=== PATIENT | female | born 1960 | race Caucasian/White ===

== ENCOUNTER → 2017-08-13 14:24 | Outpatient (CLI) | payer OTHER, SELFPAY ==
--- NOTE | 2017-08-13 14:28 | RAD_ITS ---
STUDY: X-RAY - LEFT KNEE REASON FOR EXAM: Female, 56 years old. Left knee pain TECHNIQUE: 4 view(s) of the knee. COMPARISON: None. FINDINGS: Normal visualized distal femur. Normal visualized proximal tibia and fibula. Normal proximal tibiofibular articulation. There is mild degenerative arthrosis of the medial femorotibial compartment. There is mild degenerative arthrosis of the lateral femorotibial compartment. There is mild degenerative arthrosis of the patellofemoral articulation. There is a soft tissue prominence in the suprapatellar region suggesting a small volume joint effusion. The soft tissue structures are unremarkable. RAD/Knee 4 or More Views IMPRESSION: Mild degenerative change Electronically Signed: Deandre Rivera DO at 15:46 EDT Tel , Service support ,
--- NOTE | 2017-08-13 14:28 | RAD_ITS ---
STUDY: X-RAY - LEFT CALCANEUS REASON FOR EXAM: Female, 56 years old. Left calcaneus pain TECHNIQUE: 2 view(s) of the calcaneus were obtained. COMPARISON: None. FINDINGS: Normal visualized calcaneus. There is a plantar calcaneal spur. There is enthesophyte formation of the posterior superior calcaneus at the site of insertion of the Achilles tendon. RAD/Calcaneus min 2 Views IMPRESSION: No acute findings, remainder as above Electronically Signed: Deandre Rivera DO at 15:47 EDT Tel , Service support ,
--- NOTE | 2017-08-13 14:28 | RAD_ITS ---
STUDY: X-RAY - RIGHT KNEE REASON FOR EXAM: Female, 56 years old. Bilateral knee pain TECHNIQUE: 4 view(s) of the knee. COMPARISON: None. FINDINGS: Normal visualized distal femur. Normal visualized proximal tibia and fibula. Normal proximal tibiofibular articulation. There appears to be a transverse avulsion along the medial tibial spur of indeterminate age. Normal medial femorotibial compartment. Normal lateral femorotibial compartment. Normal patellofemoral articulation. There is no demonstrated joint effusion. Extensive varicosities along the lateral subcutaneous tissue. RAD/Knee 4 or More Views IMPRESSION: Avulsion of the medial tibial spur of indeterminate age. There is no acute displaced fracture or dislocation. No effusions. Extensive varices. Electronically Signed: Mami Crockett MD at 3:54 EDT , Service support ,
--- NOTE | 2017-08-13 14:28 | RAD_ITS ---
STUDY: X-RAY - RIGHT CALCANEUS REASON FOR EXAM: Female, 56 years old. Heel pain TECHNIQUE: 2 view(s) of the calcaneus were obtained. COMPARISON: None. FINDINGS: Normal visualized calcaneus. There is enthesophyte formation of the posterior superior calcaneus at the site of insertion of the Achilles tendon. There is a plantar calcaneal spur. RAD/Calcaneus min 2 Views IMPRESSION: No acute findings, remainder as above Electronically Signed: Deandre Rivera DO at 15:46 EDT Tel , Service support ,
== END ==
PROVIDERS: Family Provider Internal Medicine; PCP Internal Medicine; Visit Provider Internal Medicine
DX: M25.562 Pain in left knee (principal); M25.561 Pain in right knee; M79.672 Pain in left foot; M79.671 Pain in right foot; G89.29 Other chronic pain
CPT/HCPCS: 73564; 73650

== ENCOUNTER 2017-08-31 18:00 | Outpatient (RCR) | payer OTHER, SELFPAY ==
--- NOTE | 2017-08-31 18:00 | DT_ITS ---
This patient was seen during an EMR downtime August 31, 2017 - September 07, 2017. This patient may have a combination of paper and electronic documentation or all paper documentation. All documentation is viewable within the e-chart portion of [facility] for each patient visit.
--- NOTE | 2017-09-08 09:51 | HP.PTEVAL_ITS ---
Patient's Visit Information IRIS COLINDRES is a 56 year old F referred to Physical Therapy by Malka Darnell with a diagnosis of LEG WEAKNESS,KNEE PAIN. Date of Evaluation: 09/08/17 Physical Therapist: Mati Noel PT, - Visit Plan Frequency: 2x /Week Duration: 4 Weeks Plan: PRE 'S QUAD/HAMS/HIP ,FUNCTIONAL STRENGTHENING,BIKE ,NUSTEP - Subjective Subjective: This 56 y/o female presents to physical therapy with leg weaknesss and knee pain . Patient major c/o is weakness and stiffness in bilateral knees left greater than right. Patient reports min pain in kness . Patient major limitation is with stair climbing,getting up from floor,and sit-stand from chair.Patient feels stiffness in knee with flexing knee. Symptoms worse in morning. Difficulty with deep squatting or kneeeling in knee. Patient denies low back pain. Bowel/bladder -OR night pain. Denies parathesia/tingling.Patient had x-rays showed mild OA and bone spurs. SOCIAL: - Objective POSTURE : WFL. PALPATION: no TTP. NEURO: inact ,denies parathesai/tingling. FLEXABLITY: hams WNL ,quads,mod tight. GAIT: normal priscila reciprocal pattern. AROM: 0-125 degrees supine knee flexion. MMT: quads/hams 4/5,hip abd 3/5 left,right 4-/5,bilateral hip extension 4-/5,hip flexion 4-/5. STAIRS: one step at a time with rail - Special Tests R Knee Dayna - Meniscus: Negative R Knee Valgus - MCL: Negative R Knee Varus - LCL: Negative R Knee Patellar Apprehension - PFS: Negative R Knee Patellar Grind - PFS: Negative L Knee Dayna - Meniscus: Negative L Knee Valgus - MCL: Negative L Knee Varus - LCL: Negative L Knee Patellar Apprehension - PFS: Negative - Goals Goal 1:: Independant with HEP Goal Time Frame: 4-6 Weeks Goal 2:: Patient to improve strength of bilateral hips to 4/5 to improve function. Goal Time Frame: 4-6 Weeks Goal 3:: Patient be able to perform 1/2 kneeling and squat lift with proper lifting Goal Time Frame: 4-6 Weeks Goal 4:: Patient asecend/descend stairs reciprocal without rail Goal Time Frame: 4-6 Weeks - Rehabilitation Potential Physical Therapy Diagnosis: This patient has weakness in bilateral knee mainly hip weakness and with mod tightness with quads which impairs stairs ,elevation from chair with functional transfers ,sqautting thus benifit from skilled PT. COMPLEXITY : MOD Rehabilitation Potential: Good - Anticipated Interventions Patient/Client Instruction: Educate patient on: Condition, Plan of Care For the Purpose of:: To increase ROM, To improve muscle performance and motor function, To improve ability to perform ADL's, To increase tolerance to activity /condition/position, To improve performance and independence with ADL's, To improve ability of physical actions for home/community/work/leisure, To improve gait and locomotor functions, To improve health of tissue, To decrease soft tissue restriction, To increase flexibility/ROM, To improve ability to perform tasks related to life management Therapeutic Exercise to Include: Strength training, Postural training, Flexibilty training, Active ROM Comment: KNEE/HIP For the Purpose of:: To increase ROM, To improve muscle performance and motor function, To improve ability to perform ADL's, To increase tolerance to activity /condition/position, To improve performance and independence with ADL's, To improve ability of physical actions for home/community/work/leisure, To improve gait and locomotor functions, To decrease soft tissue restriction, To increase flexibility/ROM, To improve ability to perform tasks related to life management TENS: Yes IF ES: Yes Ultrasound (thermal/non thermal): Yes For the Purpose of:: To decrease swelling/inflammation, To improve nutrient delivery to tissue, To increase oxygenation perfusion Thank you for the opportunity to evaluate your patient. For Medicare and Medicare HMO plans, please review the plan of care and approve it. It will need to be FAXED BACK to us at [phone] for Medicare purposes. Please let me know if there are questions or concerns regarding this plan of care. Physician Signature: Date:
--- NOTE | 2017-09-08 10:02 | HP.PTEVAL ---
Patient's Visit Information IRIS COLINDRES is a 56 year old F referred to Physical Therapy by Malka Darnell with a diagnosis of LEG WEAKNESS,KNEE PAIN. Date of Evaluation: 08/31/17 Physical Therapist: Mati Noel PT, - Visit Plan Frequency: 2x /Week Duration: 4 Weeks Plan: PRE 'S QUAD/HAMS/HIP ,FUNCTIONAL STRENGTHENING,BIKE ,NUSTEP - Subjective Subjective: This 56 y/o female presents to physical therapy with leg weaknesss and knee pain . Patient major c/o is weakness and stiffness in bilateral knees left greater than right. Patient reports min pain in kness . Patient major limitation is with stair climbing,getting up from floor,and sit-stand from chair.Patient feels stiffness in knee with flexing knee. Symptoms worse in morning. Difficulty with deep squatting or kneeeling in knee. Patient denies low back pain. Bowel/bladder -OR night pain. Denies parathesia/tingling.Patient had x-rays showed mild OA and bone spurs. SOCIAL: - Objective POSTURE : WFL. PALPATION: no TTP. NEURO: inact ,denies parathesai/tingling. FLEXABLITY: hams WNL ,quads,mod tight. GAIT: normal priscila reciprocal pattern. AROM: 0-125 degrees supine knee flexion. MMT: quads/hams 4/5,hip abd 3/5 left,right 4-/5,bilateral hip extension 4-/5,hip flexion 4-/5. STAIRS: one step at a time with rail - Special Tests R Knee Dayna - Meniscus: Negative R Knee Valgus - MCL: Negative R Knee Varus - LCL: Negative R Knee Patellar Apprehension - PFS: Negative R Knee Patellar Grind - PFS: Negative L Knee Dayna - Meniscus: Negative L Knee Valgus - MCL: Negative L Knee Varus - LCL: Negative L Knee Patellar Apprehension - PFS: Negative - Goals Goal 1:: Independant with HEP Goal Time Frame: 4-6 Weeks Goal 2:: Patient to improve strength of bilateral hips to 4/5 to improve function. Goal Time Frame: 4-6 Weeks Goal 3:: Patient be able to perform 1/2 kneeling and squat lift with proper lifting Goal Time Frame: 4-6 Weeks Goal 4:: Patient asecend/descend stairs reciprocal without rail Goal Time Frame: 4-6 Weeks - Rehabilitation Potential Physical Therapy Diagnosis: This patient has weakness in bilateral knee mainly hip weakness and with mod tightness with quads which impairs stairs ,elevation from chair with functional transfers ,sqautting thus benifit from skilled PT. COMPLEXITY : MOD Rehabilitation Potential: Good - Anticipated Interventions Patient/Client Instruction: Educate patient on: Condition, Plan of Care For the Purpose of:: To increase ROM, To improve muscle performance and motor function, To improve ability to perform ADL's, To increase tolerance to activity/condition/position, To improve performance and independence with ADL's, To improve ability of physical actions for home/community/work/leisure, To improve gait and locomotor functions, To improve health of tissue, To decrease soft tissue restriction, To increase flexibility/ROM, To improve ability to perform tasks related to life management Therapeutic Exercise to Include: Strength training, Postural training, Flexibilty training, Active ROM Comment: KNEE/HIP For the Purpose of:: To increase ROM, To improve muscle performance and motor function, To improve ability to perform ADL's, To increase tolerance to activity/condition/position, To improve performance and independence with ADL's, To improve ability of physical actions for home/community/work/leisure, To improve gait and locomotor functions, To decrease soft tissue restriction, To increase flexibility/ROM, To improve ability to perform tasks related to life management TENS: Yes IF ES: Yes Ultrasound (thermal/non thermal): Yes For the Purpose of:: To decrease swelling/inflammation, To improve nutrient delivery to tissue, To increase oxygenation perfusion Thank you for the opportunity to evaluate your patient. For Medicare and Medicare HMO plans, please review the plan of care and approve it. It will need to be FAXED BACK to us at [phone] for Medicare purposes. Please let me know if there are questions or concerns regarding this plan of care. Physician Signature: Date:
--- NOTE | 2017-11-06 15:55 | HP.PTDCNRP_ITS ---
HP - Discharge Summary (1) - Patient Information IRIS COLINDRES was seen in my office for initial evaluation on 08/31/17. The following Plan of Care was established for this patient: Initial Frequency: 2x /Week Initial Duration: 4 Weeks - Anticipated Interventions Patient/Client Instruction: Educate patient on: Condition, Plan of Care For the Purpose of:: To increase ROM, To improve muscle performance and motor function, To improve ability to perform ADL's, To increase tolerance to activity /condition/position, To improve performance and independence with ADL's, To improve ability of physical actions for home/community/work/leisure, To improve gait and locomotor functions, To improve health of tissue, To decrease soft tissue restriction, To increase flexibility/ROM, To improve ability to perform tasks related to life management Therapeutic Exercise to Include: Strength training, Postural training, Flexibilty training, Active ROM For the Purpose of:: To increase ROM, To improve muscle performance and motor function, To improve ability to perform ADL's, To increase tolerance to activity /condition/position, To improve performance and independence with ADL's, To improve ability of physical actions for home/community/work/leisure, To improve gait and locomotor functions, To decrease soft tissue restriction, To increase flexibility/ROM, To improve ability to perform tasks related to life management TENS: Yes IF ES: Yes Ultrasound (thermal/non thermal): Yes For the Purpose of:: To decrease swelling/inflammation, To improve nutrient delivery to tissue, To increase oxygenation perfusion This patient was last seen in our office . Pertinent comments regarding their Physical therapy will appear below: Patient seen for PT evaluation and HEP. At this point I will be discontinuing this patient from physical therapy. I would be happy to see this patient again in the future if found appropriate by the physician. Thank you! Mati Noel, PT,
== END 2017-08-31 19:00 | disposition home or self-care (01) ==
LOC: PT 18:00
PROVIDERS: Family Provider Internal Medicine; PCP Internal Medicine; Visit Provider Internal Medicine
DX: R29.898 Other symptoms and signs involving the musculoskeletal system (principal); M25.569 Pain in unspecified knee
CPT/HCPCS: 97110; 97162

== ENCOUNTER → 2020-10-08 07:18 | Outpatient (CLI) | payer OTHER, SELFPAY ==
--- NOTE | 2020-10-08 08:54 | NEURO_ITS ---
NCS and/or EMG Patient Report Ordering Doctor: Malka Darnell DATE OF SERVICE: 10/08/20 Indication: Numbness of the first three digits on the left hand. 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 Symptoms have been present intermittently for several years, but worsened significantly in March 2020. Evaluate for entrapment neuropathy. Findings: Nerve conduction studies were performed in the left upper extremity. The left median motor study recording the abductor pollicis brevis showed a normal amplitude, prolonged distal latency and borderline conduction velocity. The left ulnar motor study recording the abductor digiti minimi showed a normal amplitude, normal distal latency and normal conduction velocity. No conduction block or focal slowing was present across the elbow. The left median sensory response recording digit two showed a normal amplitude, prolonged latency and slowed conduction velocity. The left ulnar sensory response recording digit five showed a normal amplitude, latency and conduction velocity. The left radial sensory response recording over the extensor snuff box showed a normal amplitude, latency and conduction velocity. Left median-ulnar lumbrical / interosseous motor latencies showed a prolonged median latency compared to the ulnar. Needle EMG of the left upper extremity muscles was performed. No denervation was seen in any muscle. The left abductor pollicis brevis muscle revealed motor units with increased duration, increased amplitude and mildly reduced recruitment. All other motor unit morphology, activation and recruitment patterns were normal. The cervical paraspinal muscles were not sampled due to the paucity of findings in the limb muscles. Impression: This is an abnormal study. 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 The pathophysiology is primarily local demyelination, though there is a degree of secondary axonal loss. These findings are compatible with the clinical diagnosis of carpal tunnel syndrome. Brown Hernandez D.O.
== END ==
PROVIDERS: PCP Internal Medicine; Referring Provider Internal Medicine; Visit Provider Internal Medicine
DX: G56.02 Carpal tunnel syndrome, left upper limb (principal); M79.671 Pain in right foot; M25.571 Pain in right ankle and joints of right foot; E03.9 Hypothyroidism, unspecified
CPT/HCPCS: 95886; 95910

== ENCOUNTER 2021-07-12 09:31 | Outpatient (CLI) | payer OTHER, SELFPAY ==
--- NOTE | 2021-07-12 09:34 | BI_ITS ---
MAMMOGRAPHY - BILATERAL SCREENING REASON FOR EXAM: Female, 60 years old. Routine annual screening examination. PERTINENT HISTORY: Mother with breast cancer. TECHNIQUE: Digital bilateral breast conchita (3D mammographic acquisition) in the CC and MLO projections. 2-D mediolateral oblique (MLO) and craniocaudad (CC) views of both breasts were obtained. CAD: Full Field Digital Mammography with Computer Added Detection was performed. COMPARISON: Comparison is made with prior chest examination dated 04/13/2020. FINDINGS: Breast Composition: There are scattered areas of fibroglandular density. There are no dominant masses or suspicious calcifications. Stable small benign-appearing bilateral axillary lymph nodes. No other significant abnormalities are identified. There has been no significant change since the prior study. BI/SCRN MAMM (CAD)W/CONCHITA BILAT IMPRESSION: Stable bilateral screening mammogram. Yearly follow-up mammogram recommended. (A) ASSESSMENT CATEGORY: BIRADS Category 2: Benign. A letter regarding these results will be sent to the patient by the facility within 30 days. Approximately 10% of breast cancers are not detected by mammography. A normal mammogram should not delay biopsy of a clinically suspicious abnormality. [id number] Electronically Signed: Dilan Randall MD at 10:41 EDT ,
== END 2021-07-12 23:59 | disposition home or self-care (01) ==
LOC: OPBI 09:33
PROVIDERS: PCP Internal Medicine; Referring Provider Internal Medicine; Visit Provider Internal Medicine
DX: Z12.31 Encounter for screening mammogram for malignant neoplasm of breast (principal); Z80.3 Family history of malignant neoplasm of breast
CPT/HCPCS: 77063; 77067

== ENCOUNTER → 2022-07-18 | Outpatient (CLI) | payer OTHER, SELFPAY ==
--- NOTE | 2022-07-18 12:46 | BI_ITS ---
MAMMOGRAPHY - BILATERAL SCREENING REASON FOR EXAM: Female, 61 years old. Routine annual screening examination. PERTINENT HISTORY: Mother with breast cancer. TECHNIQUE: Digital bilateral breast conchita (3D mammographic acquisition) in the CC and MLO projections. 2-D mediolateral oblique (MLO) and craniocaudad (CC) views of both breasts were obtained. CAD: Full Field Digital Mammography with Computer Added Detection was performed. COMPARISON: Comparison is made with prior study dated July 12, 2021 and January 23, 2012. FINDINGS: Breast Composition: There are scattered areas of fibroglandular density. There are no dominant masses or suspicious calcifications. Stable asymmetric breast tissue in the upper outer quadrant of the left breast as compared to the right side. Correlation with ultrasound is recommended for further evaluation. No other significant abnormalities are identified. There has been no significant change since the prior study. BI/SCRN MAMM (CAD)W/CONCHITA BILAT IMPRESSION: Stable bilateral screening mammogram. Correlation with ultrasound of the upper-outer quadrant of the left breast is recommended. ASSESSMENT CATEGORY: BIRADS Category 0: Incomplete. Need additional imaging evaluation. A letter regarding these results will be sent to the patient by the facility within 30 days. Approximately 10% of breast cancers are not detected by mammography. A normal mammogram should not delay biopsy of a clinically suspicious abnormality. [id number] Electronically Signed: Dilan Randall MD at 13:54 EDT ,
== END | disposition home or self-care (01) ==
LOC: OPBI 12:45
PROVIDERS: PCP Internal Medicine; Referring Provider Internal Medicine; Visit Provider Internal Medicine
DX: Z12.31 Encounter for screening mammogram for malignant neoplasm of breast (principal); Z80.3 Family history of malignant neoplasm of breast
CPT/HCPCS: 77063; 77067

== ENCOUNTER → 2022-07-23 | Outpatient (CLI) | payer OTHER, SELFPAY ==
--- NOTE | 2022-07-23 10:50 | US_ITS ---
STUDY: ULTRASOUND BREAST - LEFT REASON FOR EXAM: Female, 61 years old. Abnormal screening mammogram. TECHNIQUE: Axial and longitudinal images of the LEFT breast were performed with a high resolution ultrasound transducer. # OF IMAGES: 31 COMPARISON: Comparison is made with prior mammogram dated July 18, 2022. FINDINGS: LEFT Breast: The upper outer quadrant of the left breast was examined with ultrasound. There is evidence of fibroglandular tissue. No sonographic abnormality is seen. US/Breast Limited Unilateral IMPRESSION: No sonographic abnormality is seen. ASSESSMENT CATEGORY: BIRADS Category 1: Negative. A letter regarding these results will be sent to the patient by the facility within 30 days. Electronically Signed: Dilan Randall MD at 9:13 EDT ,
== END | disposition home or self-care (01) ==
PROVIDERS: PCP Internal Medicine; Referring Provider Internal Medicine; Visit Provider Internal Medicine
DX: R92.8 Other abnormal and inconclusive findings on diagnostic imaging of breast (principal)
CPT/HCPCS: 76642

== ENCOUNTER → 2023-11-10 | Outpatient (CLI) | payer OTHER, SELFPAY ==
--- NOTE | 2023-11-10 16:25 | BI_ITS ---
MAMMOGRAPHY - BILATERAL SCREENING REASON FOR EXAM: Female, 62 years old. Routine annual screening examination. PERTINENT HISTORY: Mother with breast cancer. Aunt with breast cancer. TECHNIQUE: Digital bilateral breast conchita (3D mammographic acquisition) in the CC and MLO projections. 2-D mediolateral oblique (MLO) and craniocaudad (CC) views of both breasts were obtained. CAD: Full Field Digital Mammography with Computer Added Detection was performed. COMPARISON: Comparison is made with prior study dated July 18, 2022 and July 12, 2021. FINDINGS: Breast Composition: There are scattered areas of fibroglandular density. There are no dominant masses or suspicious calcifications. No other significant abnormalities are identified. There has been no significant change since the prior study. BI/SCRN MAMM (CAD)W/CONCHITA BILAT IMPRESSION: Stable bilateral screening mammogram. Yearly follow-up mammogram recommended. (A) ASSESSMENT CATEGORY: BIRADS Category 1: Negative. A letter regarding these results will be sent to the patient by the facility within 30 days. Approximately 10% of breast cancers are not detected by mammography. A normal mammogram should not delay biopsy of a clinically suspicious abnormality. [id number] Electronically Signed: Dilan Randall MD at 8:21 EDT ,
--- NOTE | 2023-11-10 16:25 | BD_ITS ---
STUDY: DUAL ENERGY X-RAY ABSORPTIOMETRY / DXA REASON FOR EXAM: Female, 62 years old. 733.90OsteopeniaBONE DENSITY REASON FOR EXAM TECHNIQUE: Bone Mineral Density (BMD) measurements of lumbar spine and bilateral hips were obtained. COMPARISON: Comparison is made with prior study dated February 13, 2011. FINDINGS: Lumbar Spine (L1-L4): g/cm2 (1.042) / T-score (0.0) / Z-score (1.7) Findings are suggestive of normal bone density with a low fracture risk. Left Femur Total: g/cm2 (0.741) / T-score (-1.6) / Z-score (-0.4) Left Femoral Neck: g/cm2 (0.554) / T-score (-2.7) / Z-score (-1.2) Right Femur Total: g/cm2 (0.730) / T-score (-1.7) / Z-score (-0.5) Right Femoral Neck: g/cm2 (0.564) / T-score (-2.6) / Z-score (-1.1) The T-Scores on the most recent prior examination were: Lumbar Spine (L1-L4): There has been improvement of bone density since the previous examination. Left Femur Total: which represents a worsening of 17.2%. Right Femur Total: which represents a worsening of 7.6%. BD/Dexa Bone Density Study IMPRESSION: The patient is considered osteoporotic as outlined below according to World Prakash Organization (WHO) criteria with a high fracture risk. There has been worsening of bone density since the previous examination. Reference Information: The T-score is the number of standard deviations above or below the standard which is normal for young adults at their peak bone mineral density. The World Health Organization (WHO) interprets the T-scores as follows: Above -1 Normal bone density Between -1 and -2.5 Osteopenia Equal to / or below -2.5 Osteoporosis As a practical clinical guideline, osteopenia may be graded as follows: Mild -1 through -1.5 Moderate -1.6 through -2.0 Severe -2.1 through -2.4 The Z-score is the number of standard deviations above or below age-matched controls. A Z-score of less than -1.5 would be considered abnormal. References: 1. NIH Osteoporosis and Related Bone Diseases www osteo.org 2. International Society for Clinical Densitometry www iscd.org 3. National Osteoporosis Foundation www nof.org Electronically Signed: Dilan Randall MD at 9:42 EDT ,
== END | disposition home or self-care (01) ==
LOC: OPBD 16:24
PROVIDERS: PCP Internal Medicine; Referring Provider Internal Medicine; Visit Provider Internal Medicine
DX: Z12.31 Encounter for screening mammogram for malignant neoplasm of breast (principal); M85.89 Other specified disorders of bone density and structure, multiple sites
CPT/HCPCS: 77063; 77067; 77080

== ENCOUNTER → 2024-11-14 | Outpatient (CLI) | payer MEDICARE, SELFPAY ==
--- NOTE | 2024-11-14 07:48 | BI_ITS ---
EXAM: SCRN MAMM (CAD)W/CONCHITA BILAT DATE: 11/14/2024 CLINICAL HISTORY: F, Age 63 y/o , BREAST CANCER SCREENING TECHNIQUE: SCRN MAMM (CAD)W/CONCHITA BILAT COMPARISON: Prior exam(s) dated 11/10/2023, 07/18/2022, and 07/12/2021. FINDINGS: TISSUE DENSITY: The breasts are almost entirely fatty. Bilateral Breast Mammographic Findings: Benign round microcalcifications are seen in both breasts. Stable nodular masslike densities are seen in both breasts. BI/SCRN MAMM (CAD)W/CONCHITA BILAT IMPRESSION: Benign screening mammogram. OVERALL FINAL ASSESSMENT BI-RADS 2: BENIGN RECOMMENDATION: Routine annual follow-up in 1 Year A letter with findings and recommendations will be mailed to the patient. Reading Location: [id number]
== END | disposition home or self-care (01) ==
LOC: OPBI 07:46
PROVIDERS: PCP Internal Medicine; Referring Provider Internal Medicine; Visit Provider Internal Medicine
DX: Z12.31 Encounter for screening mammogram for malignant neoplasm of breast (principal)
CPT/HCPCS: 77063; 77067